=== PATIENT | female | born 1955 | race Asian ===

== ENCOUNTER 2019-05-06 09:59 | Emergency (ER) | payer OTHER ==
[~2019-05-06] VITALS: Ht 172.7 cm; Wt 86.6 kg
[2019-05-06 10:04] VITALS: TEMP 98.1
[2019-05-06 10:29] LABS: PLATELET COUNT 250 K/uL (152-353)
[2019-05-06 10:51] LABS: POTASSIUM 3.5 mmol/L (3.6-5.2); SODIUM 141 mmol/L (136-145)
[2019-05-06 12:43] VITALS: BP 141/76
== END 2019-05-06 12:43 | disposition home or self-care (01) ==
LOC: ED 09:59
PROVIDERS: Emergency Medicine
DX: I16.0 Hypertensive urgency (principal)
CPT/HCPCS: 80053; 81000; 83735; 84484; 85027; 93005; 99283; 99284; J1940

== ENCOUNTER 2020-02-02 11:59 | Emergency (ER) | payer OTHER ==
[~2020-02-02] VITALS: Ht 172.7 cm; Wt 86.6 kg
[2020-02-02 12:15] VITALS: BP 193/80; TEMP 99.1
== END 2020-02-02 15:00 | disposition home or self-care (01) ==
LOC: ED 11:59
DX: S40.012A Contusion of left shoulder, initial encounter (principal); V89.2XXA Person injured in unspecified motor-vehicle accident, traffic, initial encounter; Y92.89 Other specified places as the place of occurrence of the external cause
CPT/HCPCS: 99282

== ENCOUNTER 2020-03-09 09:58 | Outpatient (CLI) | payer OTHER ==
[2020-03-09 10:20] LABS: PLATELET COUNT 248 K/uL (152-353)
[2020-03-09 10:33] LABS: POTASSIUM 4.2 mmol/L (3.6-5.2); SODIUM 140 mmol/L (136-145)
== END 2020-03-09 21:52 | disposition home or self-care (01) ==
LOC: LABW 09:58
PROVIDERS: Nurse Practitioner Family
DX: R00.2 Palpitations (principal); R06.02 Shortness of breath
CPT/HCPCS: 36415; 80053; 82550; 83880; 84484; 85027

== ENCOUNTER 2020-03-28 08:42 | Outpatient (CLI) | payer OTHER | END 2020-03-28 19:04 | disposition home or self-care (01) | LOC: US 08:42 | DX: R06.02 Shortness of breath (principal); R01.1 Cardiac murmur, unspecified; R09.89 Other specified symptoms and signs involving the circulatory and respiratory systems; R00.8 Other abnormalities of heart beat | CPT/HCPCS: 93225 ==

== ENCOUNTER 2020-03-29 09:32 | Outpatient (CLI) | payer OTHER | END 2020-03-29 20:12 | disposition home or self-care (01) | LOC: US 09:32 → RESP 09:32 → US 20:12 | DX: R06.02 Shortness of breath (principal); R01.1 Cardiac murmur, unspecified; R00.8 Other abnormalities of heart beat; R09.89 Other specified symptoms and signs involving the circulatory and respiratory systems ==

== ENCOUNTER 2020-05-09 08:37 | Outpatient (CLI) | payer OTHER | END 2020-05-09 20:13 | disposition home or self-care (01) | LOC: NM 08:37 | DX: R07.89 Other chest pain (principal); I10 Essential (primary) hypertension | CPT/HCPCS: A9500 ==

== ENCOUNTER 2020-06-22 08:38 | Outpatient (CLI) | payer OTHER | END 2020-06-22 20:06 | disposition home or self-care (01) | LOC: US 08:38 | PROVIDERS: ATTEND Specialist | DX: I73.9 Peripheral vascular disease, unspecified (principal) ==

== ENCOUNTER 2020-09-19 17:01 | Outpatient (CLI) | payer OTHER ==
[2020-09-19 17:17] LABS: PLATELET COUNT 300 K/uL (152-353)
[2020-09-19 17:27] LABS: POTASSIUM 4.5 mmol/L (3.6-5.2)
== END 2020-09-19 19:29 | disposition home or self-care (01) ==
LOC: LABW 17:01
PROVIDERS: ATTEND Specialist
DX: Z01.810 Encounter for preprocedural cardiovascular examination (principal); R94.39 Abnormal result of other cardiovascular function study
CPT/HCPCS: 36415; 80048; 80076; 85027

== ENCOUNTER 2020-11-08 13:13 | Outpatient (CLI) | payer OTHER ==
[2020-11-08 13:19] LABS: PLATELET COUNT 275 K/uL (152-353)
== END 2020-11-08 21:54 | disposition home or self-care (01) ==
LOC: LAB 13:13
PROVIDERS: ATTEND Nurse Practitioner Adult Health
DX: Z01.810 Encounter for preprocedural cardiovascular examination (principal); I25.10 Atherosclerotic heart disease of native coronary artery without angina pectoris
CPT/HCPCS: 36415; 80048; 85027